=== PATIENT | female | born 1945 | race Caucasian/White ===

== ENCOUNTER 2017-03-28 09:55 | Day surgery (SDC) | payer MEDICARE, OTHER ==
[~2017-03-28] VITALS: Ht 162.6 cm; Wt 68.5 kg
[2017-03-28] VITALS (10 sets, daily range): BP systolic 136–178; BP diastolic 70–88; PULSE 61–95; RESP 16–20; TEMP 97.6–98.5; O2SAT 98–99
[2017-03-28] MEDS ORDERED: SODIUM CHLOR 0.9% 1000 ML INJ 1,000 ML IV SCH (10:30)
[2017-03-28] MEDS ORDERED: ASPIRIN 81 MG CHEW TAB PO SCH (10:30)
[2017-03-28] MEDS ORDERED: diphenhydrAMINE HCL 50 MG/ML VIAL ONE (10:39)
[2017-03-28] MEDS ORDERED: methylPREDNISolone SOD SUCC 125 MG/2 ML VIAL ONE (10:39)
[2017-03-28] MEDS ORDERED: EVIS60TA PO (10:44)
[2017-03-28] MEDS ORDERED: CITRTAB7 PO (10:44)
[2017-03-28] MEDS ORDERED: CHOL5000 PO (10:44)
[2017-03-28] MEDS ORDERED: MULTTAB67 PO (10:44)
[2017-03-28 10:50] LABS: AUTOMATED NEUTROPHIL # 2.7 TH/MM3 (1.8-7.7); BASOPHIL % 0.8 % (0.0-2.0); EOSINOPHIL # 0.2 TH/MM3 (0-0.4); EOSINOPHIL % 3.3 % (0.0-4.0); HEMATOCRIT 43.9 % (35.0-46.0); HEMO FLAGS DIFF FINAL; LYMPHOCYTE # 1.7 TH/MM3 (1.0-4.8); MEAN CELL VOLUME 91.3 FL (80.0-100.0); MEAN CORPUSCULAR HEMOGLOBIN 30.9 PG (27.0-34.0); MEAN CORPUSCULAR HGB CONC 33.8 % (32.0-36.0); NEUT % 53.9 % (16.0-70.0); PLATELET COUNT 203 TH/MM3 (150-450); RED CELL DISTRIBUTION WIDTH 12.6 % (11.6-17.2); WHITE BLOOD COUNT 5.1 TH/MM3 (4.0-11.0)
[2017-03-28] MEDS ORDERED: diphenhydrAMINE HCL 50 MG/ML VIAL IV PUSH ONE (11:30)
[2017-03-28] MEDS ORDERED: methylPREDNISolone SOD SUCC 125 MG/2 ML VIAL IV PUSH ONE (11:30)
[2017-03-28] MEDS ORDERED: FAMOTIDINE 20 MG/2 ML VIAL IV PUSH ONE (12:00)
[2017-03-28] MEDS ORDERED: HEPARIN-NS/PF INJ 500 ML ONE (12:20)
[2017-03-28 12:21] LABS: APTT (PATIENT) 26.1 SEC (24.3-30.1); PROTHROMBIN TIME - PATIENT 11.1 SEC (9.8-11.6)
[2017-03-28 12:22] LABS: BICARBONATE 29.6 MEQ/L (21.0-32.0); POTASSIUM 4.2 MEQ/L (3.5-5.1)
[2017-03-28] MEDS ORDERED: HEPARIN SODIUM - IV 10,000 UNITS/10 ML VIAL ONE (13:04)
[2017-03-28] MEDS ORDERED: CLOPIDOGREL 300 MG TAB ONE (13:16)
[2017-03-28] MEDS ORDERED: TIROFIBAN INFUSION INJ 250 ML IV ONE (13:16)
[2017-03-28] MEDS ORDERED: ASPIRIN 81 MG CHEW TAB ONE (13:16)
[2017-03-28] MEDS ORDERED: TIROFIBAN INFUSION INJ 250 ML IV SCH (13:26)
[2017-03-28] MEDS ORDERED: SODIUM CHLORIDE 0.9% FLUSH 10 ML FLUSH IV FLUSH PRN (13:30)
[2017-03-28] MEDS ORDERED: BACITRACIN OINT 0.9 GM PKT TOP ONE (13:30)
[2017-03-28] MEDS ORDERED: CLOPIDOGREL 300 MG TAB PO ONE (13:30)
[2017-03-28] MEDS ORDERED: MISC INFORMATION XX ONE (13:30)
--- NOTE | 2017-03-28 13:47 | CATHPROC ---
[employer] HIS Report Study Information Study Number Admission Scheduled Start Study Start [id number] Mar 28 2017 9:55AM 03/28/2017 Mar 28 2017 12:12PM [place] [facility] Cardiac Catheterization Admit Source Facility Department Other [facility] Physician and Clinical Staff Initial Garrick Sheets As400 AdministratorBogdan Norris,MARLENE As400 AdministratorShelby Ribeiro,MARLENE Other cathlab, cathlab Recorder Anayeli Graham,RT(R) TECH2 Recorder Scottie Shannon RCIS(BS) Scrub John Craig,RT(R) Procedures Performed Procedure Location (Site) Vessel Name Coronary Angiograms LCA Left Coronary Coronary Angiograms RCA Right Coronary Stent RCA Prox Right Coronary Wire insertion Fem Art (right) Femoral Art Equipment Time Demonstrator Sewing Techniques Description Size Mfg Part Number Used/Scraped [id number] 13:07 [employer] WIRE, [employer] PROWATER 180CM 180CM Used *[id number] CATHETER, FR5 SWAN VERO 12:14 [employer] FR 5 110F5 *[id number] Used MONITOR TRANSDUCER, TRUWAVE [id number] 12:14 RIDER KRUEGER * Used W/STOCKCOCK *[id number] *[id number] [id number] *[id number] [id number] *[id number] [id number] *[id number] 12:14 MEDLINE IND[employer] PACK, CCL CUSTOM * Used *[id number] 12:14 MEDLINE PACER PEN, SKIN DUAL W/ RULER * Used *[id number] 13:09 [employer]TRONIC STENT, 3.0 9 INTEGRITY 3.0 9 Used *[id number] 13:12 [employer] MEDICAL 30 JAYSHREE INDEFLATOR Used *[id number] 12:14 [employer] MEDICAL SHEATH, FR5.5 PRELUDE 11CM FR 5.5 Used [id number] 13:07 [employer] MEDICAL SHEATH, FR6.5 PRELUDE 11CM FR 6.5 [id number] Used *[id number] 12:14 [employer] MEDICAL WIRE, 3MMJ .035 180CM 180CM Used *[id number] 12:14 NAMIC MANIFOLD, 4 PORT * Used *[id number] 12:14 NYCOMED OMNIPAQUE, 350 MG, 150ML 150ML [id number] Used [id number] 12:14 [employer] [employer] BLANKET,WARM AIR CCL * Used *[id number] 12:14 TERUMO MEDICAL SHEATH, FR4 TERUMO (10CM) FR 4 Used *[id number] Equipment Model, Serial, Lot Number and Expiration Data Description Model Number Serial Number Lot Number Expiration Date SHEATH, FR6.5 PRELUDE 11CM [id number] 01-19-2020 STENT, 3.0 9 INTEGRITY [id number] 09-19-2018 History: Allergies Allergy Reaction Shellfish NAUSEA History: Stress Tests Stress or Imaging Studies Performed Yes Standard Exercise Stress Test No Stress Echo No Stress Test SPECT Stress Test SPECT Result Stress Test SPECT Ischemia Risk/Extent Yes Positive Low Stress Test CMR No Cardiac CTA Coronary Calcium Score No No Labs Hgb (g/dl) Hct (%) RBC (MIL/MM3) WBC (l/cumm) Platelets (thousands) 11.60-17.00 35.00-51.00 4.00-5.90 4.00-11.00 150.00-450.00 14.8 43 4.8 5.1 203 Glucose (mg/dl) BUN (mg/dl) Creatinine (mg/dl) BUN:Creatinine (1:x) 74.00-106.00 7.00-18.00 0.50-1.30 10.00-20.00 96 23 0.7 32.9 Na (meq/l) K (meq/l) 136.00-145.00 3.50-5.10 143 4.2 INR (PTT:PT) 0.90-1.10 1 CPK-MB (ng/ML) 0.50-3.60 Not Drawn Medication Medication Total Dose (Bolus/Oral) Medication Total Dosage/Unit 1% XYLOCAINE 20 mL AGGRASTAT BOLUS 33 mL ASPIRIN 162 mg HEPARIN 5000 units PLAVIX 600 mg Medications (Bolus/Oral) Medication Time Given Dosage/Unit Administered By Reason 1% XYLOCAINE 03/28/2017 12:43:07 PM 20 mL Garrick Barth 20 mL 1% XYLOCAINE given in lab by Garrick Barth in Right Groin via Subcutaneous. HEPARIN 03/28/2017 1:06:15 PM 5000 units Shelby Lyon 5000 units HEPARIN given in lab by Shelby Lyon, RN in Left Hand via Peripheral IV. Ordered by Garrick Vegas. AGGRASTAT BOLUS 03/28/2017 1:18:00 PM 33 mL Shelby Lyon 33 mL AGGRASTAT BOLUS given in lab by Shelby Lyon RN in Right Hand via Peripheral IV. Ordered by Garrick Barth. ASPIRIN 03/28/2017 1:21:30 PM 162 mg Shelby Lyon 162 mg ASPIRIN given in lab by Shelby Lyon RN in Right Hand via Subcutaneous. Ordered by Garrick Rankin. PLAVIX 03/28/2017 1:21:49 PM 600 mg Shelby Lyon 600 mg PLAVIX given in lab by Shelby Lyon RN via Oral. Ordered by Garrick Barth. Medication (Drip) Medication Time Given Dosage/Unit Concentration/Unit Diluent (ml) Solution AGGRASTAT DRIP 03/28/2017 1:18:29 PM 0.15 mcg/kg/min 12.5 mg 250 NaCl .9 0.15 mcg/kg/min AGGRASTAT DRIP given in lab by Shelby Lyon RN in Right Hand via Peripheral IV. P ump/Drip Flow = 12.37 ml/hr using NaCl .9 with a concentration of 12.5 mg in 250 ml. Ordered by Garrick Barth. Chronological Log Time Study Chronological Log 12:11:46 Patient arrived via Bed. 12:11:47 Patient Name, D.O.B, / Armband Verified By R.N. 12:11:47 Consent signed by the physician and the patient and verified by the [facility] staff. 12:11:48 Pre-op and post- op instructions given; patient acknowledges understanding of instructions . 12:11:49 Verbal Stimulation=2 Physical Stimulation=2 Airway=2 Respiration=2 TOTAL=8. (0=absent, 1=l imited, 2=present) 12:11:52 Patient has been NPO for More than 6Hrs. 12:11:53 Skin Breakdown-none per patient 12:14:17 Patient Warmer Placed on the Table. 12:14:22 Eri Prominences Protected 12:14:24 A # 20 IV was noted in the Hand (left). Grade = 0 0.9ns kvo Vitals capture started with the following parameters, Patient=Adult, Interval=5 min, Initial P wbculrw=851 mmHg, 12:15:37 Deflation Rate=5 mmHg, Cuff placed on Right Arm 12:16:10 History and physical on the chart. 12:16:31 HR=76 bpm, IBBI=055/104 mmhg, SpO2=95.0 %, Resp=18 B/min, Pain=0, Julio=10, [place]=2 12:21:13 HR=75 bpm, FSII=220/80 mmhg, HxE6=550.0 %, Resp=9 B/min, Pain=0, Julio=10, [place]=2 12:26:10 HR=87 bpm, CWSU=956/97 mmhg, IvJ8=050.0 %, Resp=18 B/min, Pain=0, Julio=10, [place]=2 12:30:54 Pressure channel 1 zeroed. 12:31:16 HR=75 bpm, EBLF=671/80 mmhg, LgP4=503.0 %, Resp=18 B/min, Pain=0, Julio=10, [place]=2 12:31:55 Reference ECG taken 12:32:26 MD paged 12:36:15 HR=76 bpm, ZFLB=654/75 mmhg, SpO2=99.0 %, Resp=18 B/min, Pain=0, Julio=10, [place]=2 12:39:24 MD arrived. 12:39:39 Consent signed by the physician and the patient and verified by the [facility] staff. 12:41:16 HR=76 bpm, LFEE=551/75 mmhg, SpO2=99.0 %, Resp=18 B/min, Pain=0, Julio=10, [place]=2 Time Out. Correct patient, correct procedure,correct physician, ,power injector not loaded with contrast with surgical 12:42:44 team present. Time Out Concurred by MD, individual staff and CITY DISPATCH SUPERVISOR in procedure Time Out #2 - Consents verified, patient in correct position, all results are labled and displa yed, safety precautions 12:42:50 taken. Time Out concurred by MD, individual staff and CITY DISPATCH SUPERVISOR in procedure. 12:42:56 Contrast Scanned 12:43:02 Case Start 12:43:07 20 mL 1% XYLOCAINE given in lab by Garrick Barth in Right Groin via Subcutaneous. 12:43:22 Access site was Right Femoral Vein. 12:43:29 Access site was Right Femoral Artery. 12:43:34 A SHEATH, FR5.5 PRELUDE 11CM FR 5.5 was advanced into the Fem Vein (right) using the Percut aneous technique. 12:43:41 A SHEATH, FR4 TERUMO (10CM) FR 4 was advanced into the Fem Vein (right) using the Percutane ous technique. 12:45:49 A CATHETER, FR5 SWAN VERO MONITOR FR 5 was inserted via Fem Vein (right) 12:46:15 HR=82 bpm, CQIQ=793/78 mmhg, EmE5=973.0 %, Resp=23 B/min, Pain=0, Julio=10, [place]=2 Recorded Pressure: RV, HR=81, Condition=Condition 1 12:47:09 (Right Ventricle) RV 30/-1/6 Recorded Pressure: PCW, HR=81, Condition=Condition 1 12:47:30 (Pulmonary Capillary Wedge) PCW Recorded Pressure: MPA, HR=77, Condition=Condition 1 12:48:00 (Main Pulmonary Artery) MPA 18/07/18 12:48:28 Saturation: Site=PA (Pulmonary Artery) , O2=84.4 %, Hgb=14.8 gm/dl, Condition=Condition 1. Used in calculation. Recorded Pressure: RV, HR=79, Condition=Condition 1 12:49:07 (Right Ventricle) RV 8 Recorded Pressure: RA, HR=78, Condition=Condition 1 12:49:21 (Right Atrium) RA 12:49:51 [place] Vero Catheter Removed 12:50:10 Saturation: Site=RA (Right Atrium) , O2=85.5 %, Hgb=14.8 gm/dl, Condition=Condition 1. Used in calculation. 12:50:23 Saturation: Site=Ao (Aorta) , O2=98.2 %, Hgb=14.8 gm/dl, Condition=Condition 1. Used in trevon culation. A JR 4.0 INFINITI CATHETER FR 4 was advanced over a wire. OMNIPAQUE, 350 MG, 150ML 150ML was us ed for 12:50:55 injections. Recorded Pressure: LV, HR=75, Condition=Condition 1 12:51:13 (Left Ventricle) LV 173/5/19 12:51:18 HR=89 bpm, GMNF=496/82 mmhg, SpO2=98.0 %, Resp=18 B/min, Pain=0, Julio=10, [place]=2 Recorded Pressure: LV, Ao, HR=85, Condition=Condition 1 12:51:31 (Left Ventricle) LV 155/6/16, (Aorta) Ao 159/76/114 12:51:59 The RCA was injected and visualized at various angles. OMNIPAQUE, 350 MG, 150ML 150ML used . 12:54:26 Catheter was removed A JL 4.0 INFINITI CATHETER FR 4 was advanced over a wire. OMNIPAQUE, 350 MG, 150ML 150ML was us ed for 12:54:28 injections. 12:54:29 The LCA was injected and visualized at various angles. OMNIPAQUE, 350 MG, 150ML 150ML used . 12:56:13 HR=86 bpm, XIXS=892/78 mmhg, SpO2=97.0 %, Resp=31 B/min, Pain=0, Julio=10, [place]=2 12:58:21 Catheter was removed A AL 1 INFINITI CATHETER FR 4 was advanced over a wire. OMNIPAQUE, 350 MG, 150ML 150ML was used for 12:58:22 injections. 12:59:26 The RCA was injected and visualized at various angles. OMNIPAQUE, 350 MG, 150ML 150ML used . 13:01:16 HR=96 bpm, ITXV=227/80 mmhg, SpO2=98.0 %, Resp=14 B/min, Pain=0, Julio=10, [place]=2 13:02:46 Catheter was removed A SHEATH, FR6.5 PRELUDE 11CM FR 6.5 was exchanged in the Fem Art (right). This was necessary in order to 13:03:00 accomodate a larger catheter. 13:06:15 TI=433 bpm, URAU=393/96 mmhg, SpO2=98.0 %, Resp=23 B/min 13:06:15 5000 units HEPARIN given in lab by Shelby Lyon, RN in Left Hand via Peripheral IV. Orde red by Garrick Barth. 13:08:54 A AL 1 GUIDE CATHETER FR 6 was advanced over a wire. OMNIPAQUE, 350 MG, 150ML 150ML was use d for injections. 13:09:45 A WIRE, ASAHI PROWATER 180CM 180CM was inserted via Fem Art (right). 13:11:16 XC=718 bpm, ATCX=318/103 mmhg, SpO2=97.0 %, Resp=19 B/min, Pain=0, Julio=10, [place]=2 An STENT, 3.0 9 INTEGRITY 3.0 9 Bare Metal Stent was inserted through a AL 1 GUIDE CATHETER FR 6 over a WIRE, 13:11:28 ASAHI PROWATER 180CM 180CM. A STENT, 3.0 9 INTEGRITY 3.0 9 was deployed using a 30 JAYSHREE INDEFLATOR at 10 atmospheres for 12 seconds in the 13:11:29 RCA Prox. 13:12:51 Delivery device removed 13:14:36 Wire removed 13:14:38 Catheter was removed 13:14:47 Case End 13:16:21 HR=97 bpm, RPIJ=458/85 mmhg, SpO2=98.0 %, Resp=15 B/min, Pain=0, Julio=10, [place]=2 33 mL AGGRASTAT BOLUS given in lab by Shelby Lyon, MARLENE in Right Hand via Peripheral IV. Orde red by Tab, 13:18:00 Garrick. 0.15 mcg/kg/min AGGRASTAT DRIP given in lab by Shelby Lyon RN in Right Hand via Peripheral IV. Pump/Drip 13:18:29 Flow = 12.37 ml/hr using NaCl .9 with a concentration of 12.5 mg in 250 ml. Ordered by Garrick Barth. 13:20:00 Activated Clotting Time Drawn 13:20:10 Vitals capture stopped. 13:21:30 162 mg ASPIRIN given in lab by Shelby Lyon RN in Right Hand via Subcutaneous. Ordered by Garrick Barth. 13:21:49 600 mg PLAVIX given in lab by Shelby Lyon, MARLENE via Oral. Ordered by Garrick Barth. 13:23:54 ACT (Normal Range 90-180) = 323 13:25:47 In the Fem Art (right) the SHEATH, FR6.5 PRELUDE 11CM FR 6.[address] by Arthur. aDle 13:25:55 In the Fem Vein (right) the SHEATH, FR5.5 PRELUDE 11CM FR 5.[address] by Garrick Nielson. 13:26:09 Sterile dressing applied to site 13:26:09 No case complications noted. 13:26:10 Cine recording checked. 13:26:17 Implantable Device card placed in patient's chart. 13:26:19 Bedside Report will be given. 13:26:24 Contrast Scanned 13:26:26 A Left and Right Heart Cath was performed. 13:26:27 [facility] - Contrast Media Used In Study Contrast Total Opened (mL) Total Used (mL) Total Wasted (mL) Omnipaque 100 100 0 End Study - Maximum Contrast Load Max Contrast Load (mL) 490.6 End Study - Radiation Exposure Fluoro Time (minutes) 8.3 End Study - Patient Disposition Complications Transferred To Interventional Outcome No Telemetry Bed successful
[2017-03-28] MEDS ORDERED: IOHEXOL 350 MG/ML 100 ML BTL (for Cath Lab) OTHER ONE (15:41)
--- NOTE | 2017-03-28 15:56 | EKG ---
Date Performed: 03/28/2017 Time Performed: 10:37:18 PTAGE: 71 years EKG: Sinus rhythm Left axis deviation Poor R wave progression - probable normal variant Low QRS voltages in precordial leads Abnormal ECG NO PREVIOUS TRACING DOCTOR: Andrea Chiu Interpretating Date/Time 03/28/2017 15:48:20
[2017-03-28] MEDS ORDERED: ATROPINE SULFATE 1 MG/ML VIAL ONE (17:04)
[2017-03-28] MEDS ORDERED: ATORVASTATIN 10 MG TAB PO SCH (21:00)
[2017-03-28] MEDS: SODIUM CHLORIDE 0.9% FLUSH 10 ML FLUSH IV FLUSH SCH (21:52)
[2017-03-29] VITALS (11 sets, daily range): BP systolic 111–114; BP diastolic 60; PULSE 76–87; RESP 18–20; TEMP 96.1–97.9; O2SAT 96–98
[2017-03-29 05:40] LABS: AUTOMATED NEUTROPHIL # 6.7 TH/MM3 (1.8-7.7); BASOPHIL % 0.2 % (0.0-2.0); EOSINOPHIL % 0.1 % (0.0-4.0); HEMATOCRIT 36.7 % (35.0-46.0); HEMO FLAGS DIFF FINAL; LYMPH % 9.4 % (9.0-44.0); LYMPHOCYTE # 0.7 TH/MM3 (1.0-4.8); MEAN CELL VOLUME 91.2 FL (80.0-100.0); MEAN CORPUSCULAR HEMOGLOBIN 31.2 PG (27.0-34.0); MEAN CORPUSCULAR HGB CONC 34.2 % (32.0-36.0); MONO % 3.9 % (0.0-8.0); NEUT % 86.4 % (16.0-70.0); PLATELET COUNT 192 TH/MM3 (150-450); RED BLOOD COUNT 4.02 MIL/MM3 (4.00-5.30); RED CELL DISTRIBUTION WIDTH 12.6 % (11.6-17.2); WHITE BLOOD COUNT 7.8 TH/MM3 (4.0-11.0)
[2017-03-29 06:21] LABS: BICARBONATE 24.6 MEQ/L (21.0-32.0); HDL CHOLESTEROL 77.5 MG/DL (40.0-60.0); INDIRECT BILIRUBIN 0.4 MG/DL (0.0-0.8); POTASSIUM 3.5 MEQ/L (3.5-5.1); TOTAL BILIRUBIN ADULT 0.5 MG/DL (0.2-1.0)
--- NOTE | 2017-03-29 08:14 | EKG ---
Date Performed: 03/29/2017 Time Performed: 06:18:06 PTAGE: 71 years EKG: Sinus rhythm Left axis deviation Poor R wave progression - probable normal variant Low QRS voltages in precordial leads Abnormal ECG PREVIOUS TRACING : 03/28/2017 10.37 DOCTOR: Luigi Bonilla Interpretating Date/Time 03/29/2017 08:13:02
[2017-03-29] MEDS ORDERED: CLOPIDOGREL 75 MG TAB PO SCH (09:00)
[2017-03-29] MEDS ORDERED: ASPIRIN 81 MG CHEW TAB PO SCH (09:00)
[2017-03-29] MEDS: SODIUM CHLORIDE 0.9% FLUSH 10 ML FLUSH IV FLUSH SCH (09:00)
--- NOTE | 2017-03-30 19:22 | MR ---
cc: NAYE DILL M.D. DATE: 03/28/17 PROCEDURE Right heart catheterization, left heart catheterization, Left ventriculopathy, coronary angiography, direct PCI with bare metal stent of the proximal right coronary artery. INDICATION Newly diagnosed cardiomyopathy, CHF, lower extremity edema. Small fixed defect in the apex with mild to moderate hypokinesis of the anterior apical wall, coronary artery disease. PROCEDURE IN DETAIL The patient was brought to the cardiac catheterization laboratory and prepped and draped in usual sterile fashion. 10 cc of 1% lidocaine was used to locally anesthetize the right femoral artery. A 4-Jordanian sheath placed in the right common femoral artery. A 5-Jordanian sheath placed in the right common femoral vein. Right heart catheterization was performed first with the following findings: The pulmonary capillary wedge pressure was 11/9/8. PA pressure 28/11/18. RV pressure 30/4/8. RA pressure 9/8/5. Her sats on room air were the following: the femoral artery was 98.2%. PA was 84.4%. RA was 85.5%. Cardiac output was 7.8 liters per minute. Cardiac index by Dionne was 4.5 liters per minute per meter square. The left heart catheterization was then performed with a 4-Jordanian JR-4 AL-1 and JL-4 catheters with the following findings: The LV pressures 170/7/10, ejection fraction 65%. The left main coronary artery had no significant disease angiographically. The left circumflex vessel had no significant disease angiographically. First obtuse marginal vessel is a small vessel, no significant disease angiographically. The second obtuse marginal vessel is a medium-sized vessel, tortuous with no significant disease angiographically. The LAD is transapical, has mild diffuse plaque in the proximal mid segment up to 20% angiographically. First diagonal artery is a small artery. No significant disease angiographically. Second diagonal artery is a medium-sized vessel, no significant disease angiographically. Also note the left main is a short vessel. The right coronary has an inferior posterior takeoff, has a proximal 175% stenosis to medium to large size vessel. DISCUSSION The patient has intermittent heart failure symptoms suggesting an ischemic etiology as her edema is intermittent with normal LV systolic function and normal right heart catheterization pressures at rest. She has a wall motion abnormality of moderate degree in the anteroapical wall. She has a 75% stenosis in the proximal right coronary artery supplying a large amount of jeopardized myocardium. I do think that it is absolutely possible that her intermittent lower extremity edema and signs of heart failure are possibly ischemic in origin and again this is a large area of myocardium that is jeopardized. Therefore, I did think it was medically necessary to proceed with PCI of the proximal right coronary artery as her clinical presentation is possibly consistent with an anginal equivalent. It was explained to her that I could not guarantee that her edema would improve without. Therefore, the patient was given 70 units per kg of heparin. ACT was 323. 6-Jordanian sheath exchanged for 4 Jordanian sheath. 6-Jordanian AL-1 guide 0.014 Prowater guidewire and 309 integrity stent were used to directly stent the lesion. ___ placed to 10 atmospheres for 20 seconds. Stenosis went from 75% to 0% with JENNIFER-III flow. CONCLUSION 1. Intermittent lower extremity edema, intermittent signs of heart failure, normal LV systolic function and right heart catheterization pressures, 75% proximal stenosis and a large amount of jeopardized myocardium and possible intermittent ischemia from this lesion leading to the patient's symptoms of intermittent edema anginal equivalent. 2. Otherwise mild proximal LAD disease as detailed above. 3. Normal right heart catheterization pressures 4. Normal LV systolic function at 65%. 5. Successful direct PCI bare metal stent of the proximal right coronary artery from 75% to 0% with JENNIFER-III flow. 6. Recommend aspirin 162 mg. 7. Recommend Plavix 600 mg p.o., 75 mg daily for 12-15 months, aspirin 162 mg daily, Aggrastat drip. We will also check fasting lipids per NCC guidelines. MD KAVON Larios/ /1:17 PM /7:02 PM
== END 2017-03-29 12:21 | disposition home or self-care (01) ==
LOC: HDIC 09:55 → HDOC 09:55 → UNDOADMOB 13:29 → HCIS 13:29 → HDOC 14:48 → HDIC 14:48 → HCIS 15:28 → HDOC 03-29 12:21
PROVIDERS: ATTEND Internal Medicine Interventional Cardiology
DX: I25.10 Atherosclerotic heart disease of native coronary artery without angina pectoris (principal); I42.0 Dilated cardiomyopathy; I50.9 Heart failure, unspecified; R60.9 Edema, unspecified
CPT/HCPCS: 80048; 80061; 80076; 82550; 82810; 85002; 85025; 85347; 85610; 85730; 92928; 93005; 93460; C1769; C1876; C1887; C1893; J1200; J1644; J2930; J3246; J0461; Q9967